=== PATIENT | female | born 1955 | race Caucasian/White ===

== ENCOUNTER → 2016-11-20 | Outpatient (CLI) | payer BC ==
[~2016-11-20] MED LIST: BENI40TA31 PO; BENI40TA5 PO; GABA100C4 PO; HYDR-3516 PO; HYDR-3583 PO; LORT5TAB PO; MELO-1 PO; MOBI15TA PO; OMEP20TA PO
--- NOTE | 2016-11-21 16:55 | EKG ---
Date Performed: 11/20/2016 Time Performed: 12:31:08 PTAGE: 61 years EKG: Sinus rhythm NORMAL ECG PREVIOUS TRACING : 03/04/2013 11.47 DOCTOR: Maryam Cho Interpretating Date/Time 11/21/2016 16:54:42
== END ==
LOC: HCAV 12:22
PROVIDERS: ATTEND Orthopaedic Surgery
DX: Z01.818 Encounter for other preprocedural examination (principal)
CPT/HCPCS: 93005

== ENCOUNTER → 2016-11-21 | Day surgery (SDC) | payer BC ==
[~2016-11-21] VITALS: Ht 175.3 cm; Wt 79.5 kg
[~2016-11-21] MED LIST changes: +*morphine SULFATE 8 MG/ML PERIprocedure ONLY ONE; +ACETAMINOPHEN/HYDROcodone 325 MG/5 MG TAB PO PRN; -BENI40TA31 PO; +BUPIVACAINE/EPINEPHRINE 0.5% PF 10 ML VIAL ONE; +CHLORHEXIDINE GLUCONATE 2 % 1 PACK (2 CLOTHS) TOPICAL PRN; +DEXAMETHASONE SOD PHOS 4 MG/ML VIAL IV ONE; +DO NOT ADM ANY ANTICOAGULANT DRUGS PRN; +FAMOTIDINE 20 MG/2 ML VIAL ONE; +GLYCOPYRROLATE 0.2 MG/ML VIAL IV PUSH ONE; +INSULIN HUMAN REGULAR 1,000 UNITS/10 ML VIAL SQ PRN; +KETOROLAC TROMETHAMINE 30 MG/ML (IVP) VIAL IV PUSH ONE; +LACTATED RINGER'S 1000 ML INJ 1,000 ML IV ONE; +LACTATED RINGER'S 1000 ML INJ 1,000 ML IV SCH; +LACTATED RINGER'S 1000 ML IV PRN; +LIDOCAINE HCL 1% PF 5 ML AMPULE OTHER ONE; -LORT5TAB PO; +METOPROLOL TARTRATE 25 MG TAB PO PRN; +MIDAZOLAM HCL 2 MG/2 ML VIAL IV ONE; +MIDAZOLAM HCL 2 MG/2 ML VIAL ONE; -MOBI15TA PO; +MORPHINE SULFATE 4 MG/ML INJ IV PUSH PRN; +ONDANSETRON HCL 4 MG/2 ML VIAL IV PRN; +ONDANSETRON HCL 4 MG/2 ML VIAL IV PUSH ONE; +POVIDONE IODINE 5% (ANTISEPSIS KIT) 4 APPLICATIONS EACH NARE PRN; +POVIDONE IODINE 7.5% SCRUB 118 ML BOTTLE TOPICAL SCH; +PROPOFOL 200 MG/20 ML AMP IV ONE; +ROCURONIUM INJ 50 MG/5 ML SYRINGE IV PUSH ONE; +SODIUM CHLORID 0.9% 500 ML IV PRN; +SODIUM CHLORIDE 0.9% FLUSH 5 ML FLUSH IVF PRN; +SODIUM CHLORIDE 0.9% FLUSH 5 ML FLUSH IVF SCH; +SUGAMMADEX SODIUM 200 MG/2 ML VIAL IV PUSH ONE; +ceFAZolin 2 GM PREMIX 50 ML IV SCH
--- NOTE | 2016-11-21 09:31 | MP ---
cc: CARLOS EDUARDO ALDRICH DATE OF SURGERY: 11/21/2016 PREOPERATIVE DIAGNOSIS Stress fracture right fifth metatarsal. POSTOPERATIVE DIAGNOSIS Stress fracture right fifth metatarasal. OPERATIVE PROCEDURE Internal fixation fracture right fifth metatarsal with a screw (we used a 4.5 malleolar screw, 65 mm long). SURGEON Dr. Carlos Eduardo Aldrich. ANESTHESIA General TECHNIQUE After induction of general anesthesia the patient was turned anterior right oblique position of supporting beanbag, well leg was properly padded. Axillary roll was placed. The patient was securely positioned. The right leg and foot thoroughly prepped with alcohol and ChloraPrep and draped in routine fashion. C-arm fluoroscopic imaging was done through the procedure. An incision 2 cm long was made centered on the tuberosity the fifth metatarsal a deep dissection carried out with a hemostat and a guidewire was then introduced, as far dorsal and medial as we could, the head of the medullary canal to the fifth metatarsal. He was in satisfactory position. I tried to improve it with additional guide wire but the additional guidewire was removed and indeed this current guidewire looks good. The 3.2 mm cannulated reamer was then placed over it and reamed to just past the fracture site. Measurements a carried out and a 65 mm malleolar screw was introduced and tightened following a fluoroscopically to make sure it is in proper position. This of course was done once a pin was removed. Final fluoroscopic images saved. Hemostasis and with cautery. 0.5% Marcaine with epinephrine injected around the incision. Closure was carried out with interrupted 3-0 nylon vertical mattress sutures. Dressing applied with Xeroform, 4x4s, ABD on the heel and a posterior fiberglass splint secured with Ernesto and Tyrese bandage. The patient transferred recovery room in satisfactory condition. The patient tolerated the procedure well. COMPLICATIONS None. POSTOPERATIVE CONDITION Satisfactory PROGNOSIS Good. MD JOANNA Jerry/lois /8:58 AM /9:23 AM
[2016-11-21 09:35] VITALS: TEMP 97.4
[2016-11-21 10:05] VITALS: BP 115/64; PULSE 70; RESP 20; O2SAT 100
--- NOTE | 2016-11-21 13:10 | RADRPT ---
EXAM DATE/TIME: 11/21/2016 07:56 [facility] COMPARISON: No previous studies available for comparison. INDICATIONS : ORIF of the right foot. MEDICAL HISTORY : Hypertension. Arthritis. Smoker. SURGICAL HISTORY : Hysterectomy. ENCOUNTER: Initial ACUITY: 1 day PAIN SCORE: Non-responsive. LOCATION: Right foot. FINDINGS: Matrix views reveal placement of 2 long orthopedic pins transfixing the base to mid fifth metatarsal. There is no evidence of dislocation. CONCLUSION: Orthopedic pins transfixing the fifth metatarsal Joce Kiran MD on November 21, 2016 at 13:07 Board Certified Radiologist. This report was verified electronically.
== END | disposition home or self-care (01) ==
LOC: HSDC 05:33
PROVIDERS: ATTEND Orthopaedic Surgery
DX: M84.374A Stress fracture, right foot, initial encounter for fracture (principal); I10 Essential (primary) hypertension; M15.9 Polyosteoarthritis, unspecified
CPT/HCPCS: 01480; 28485; 73620; 76000; C1713; J0690; J1100; J1885; J2250; J2270; J2405; J3010; J7120

== ENCOUNTER 2017-06-05 11:44 | Inpatient (IN) | payer BC ==
[~2017-06-05] VITALS: Ht 175.3 cm; Wt 79.6 kg
[~2017-06-05 11:44] MED LIST changes: -*morphine SULFATE 8 MG/ML PERIprocedure ONLY ONE; -ACETAMINOPHEN/HYDROcodone 325 MG/5 MG TAB PO PRN; -BENI40TA5 PO; -BUPIVACAINE/EPINEPHRINE 0.5% PF 10 ML VIAL ONE; +CALC1TAB87 PO; -CHLORHEXIDINE GLUCONATE 2 % 1 PACK (2 CLOTHS) TOPICAL PRN; +DAILTAB38 PO; -DEXAMETHASONE SOD PHOS 4 MG/ML VIAL IV ONE; -DO NOT ADM ANY ANTICOAGULANT DRUGS PRN; -FAMOTIDINE 20 MG/2 ML VIAL ONE; -GABA100C4 PO; -GLYCOPYRROLATE 0.2 MG/ML VIAL IV PUSH ONE; -HYDR-3516 PO; -HYDR-3583 PO; -INSULIN HUMAN REGULAR 1,000 UNITS/10 ML VIAL SQ PRN; -KETOROLAC TROMETHAMINE 30 MG/ML (IVP) VIAL IV PUSH ONE; -LACTATED RINGER'S 1000 ML INJ 1,000 ML IV ONE; -LACTATED RINGER'S 1000 ML INJ 1,000 ML IV SCH; -LACTATED RINGER'S 1000 ML IV PRN; -LIDOCAINE HCL 1% PF 5 ML AMPULE OTHER ONE; -MELO-1 PO; +MELO15TA20 PO; -METOPROLOL TARTRATE 25 MG TAB PO PRN; -MIDAZOLAM HCL 2 MG/2 ML VIAL IV ONE; -MIDAZOLAM HCL 2 MG/2 ML VIAL ONE; -MORPHINE SULFATE 4 MG/ML INJ IV PUSH PRN; +OMEGCAP PO; -OMEP20TA PO; +OMEP20TA93 PO; -ONDANSETRON HCL 4 MG/2 ML VIAL IV PRN; -ONDANSETRON HCL 4 MG/2 ML VIAL IV PUSH ONE; -POVIDONE IODINE 5% (ANTISEPSIS KIT) 4 APPLICATIONS EACH NARE PRN; -POVIDONE IODINE 7.5% SCRUB 118 ML BOTTLE TOPICAL SCH; -PROPOFOL 200 MG/20 ML AMP IV ONE; -ROCURONIUM INJ 50 MG/5 ML SYRINGE IV PUSH ONE; -SODIUM CHLORID 0.9% 500 ML IV PRN; -SODIUM CHLORIDE 0.9% FLUSH 5 ML FLUSH IVF PRN; -SODIUM CHLORIDE 0.9% FLUSH 5 ML FLUSH IVF SCH; -SUGAMMADEX SODIUM 200 MG/2 ML VIAL IV PUSH ONE; -ceFAZolin 2 GM PREMIX 50 ML IV SCH
[2017-06-05] MEDS ORDERED: SODIUM CHLOR 0.9% 1000 ML INJ 1,000 ML IV ONE (12:00)
[2017-06-05] MEDS ORDERED: PHENYLEPH/NS 1000 MCG/10 ML SYR IV ONE (12:00)
[2017-06-05] MEDS ORDERED: DEXAMETHASONE SOD PHOS 4 MG/ML VIAL IV ONE (12:00)
[2017-06-05] MEDS ORDERED: ONDANSETRON HCL 4 MG/2 ML VIAL IV ONE ×2 (12:00→12:45)
[2017-06-05] MEDS ORDERED: ROCURONIUM INJ 50 MG/5 ML SYRINGE IV PUSH ONE (12:00)
[2017-06-05] MEDS ORDERED: LIDOCAINE HCL 1% PF 5 ML SYRINGE OTHER ONE (12:00)
[2017-06-05] MEDS ORDERED: KETOROLAC TROMETHAMINE 30 MG/ML (IVP) VIAL IV PUSH ONE (12:00)
[2017-06-05] MEDS ORDERED: ePHEDrine/NS 25 MG/5 ML SYRINGE IV ONE (12:00)
[2017-06-05] MEDS ORDERED: DEXT 5%-NACL 0.9% 1000 ML INJ 1,000 ML IV SCH (12:00)
[2017-06-05] MEDS ORDERED: PROPOFOL 200 MG/20 ML AMP IV ONE (12:00)
[2017-06-05] MEDS ORDERED: LACTATED RINGER'S 1000 ML IV PRN (12:15)
[2017-06-05] MEDS ORDERED: CEFAZOLIN INJ 2,000 MG in SODIUM CHLORIDE 0.9% INJ 100 ML IV SCH (12:15)
[2017-06-05] MEDS ORDERED: CHLORHEXIDINE GLUCONATE 2 % 1 PACK (2 CLOTHS) TOPICAL PRN (12:15)
[2017-06-05] MEDS ORDERED: POVIDONE IODINE 5% (ANTISEPSIS KIT) 4 APPLICATIONS EACH NARE PRN (12:15)
[2017-06-05] MEDS ORDERED: SODIUM CHLORID 0.9% 500 ML IV PRN (12:15)
[2017-06-05] MEDS ORDERED: METOPROLOL TARTRATE 25 MG TAB PO PRN (12:15)
[2017-06-05] MEDS ORDERED: METRONIDAZOLE 500 MG/100 ML ISONTONIC SOLN IV SCH (12:15)
[2017-06-05] MEDS ORDERED: FAMOTIDINE 20 MG/2 ML VIAL ONE (12:44)
[2017-06-05] MEDS ORDERED: ONDANSETRON HCL 4 MG/2 ML VIAL ONE (12:44)
[2017-06-05] MEDS ORDERED: SUGAMMADEX SODIUM 200 MG/2 ML VIAL IV PUSH ONE ×2 (12:47→13:20)
[2017-06-05] MEDS ORDERED: ACETAMINOPHEN 1000 MG/100 ML 100 ML IV ONE (12:48)
[2017-06-05] MEDS ORDERED: FAMOTIDINE 20 MG/2 ML VIAL IV ONE (12:50)
[2017-06-05] MEDS ORDERED: ceFAZolin INJ 1,000 MG VIAL ONE (13:09)
[2017-06-05] MEDS ORDERED: MIDAZOLAM HCL 2 MG/2 ML VIAL ONE (13:26)
[2017-06-05] MEDS: metroNIDAZOLE 500 MG INJ 100 ML IV SCH (13:55)
--- NOTE | 2017-06-05 14:13 | PD.OP ---
Operative Report Date of Surgery: Jun 05, 2017 Preoperative Diagnosis: Colon stricture Postoperative Diagnosis: Same Procedure: Cystoscopy with bilateral ureteral catheter insertion Anesthesia: [facility] Surgeon: Dung Mabry Mattress Specialist(s): None Resident Surgeon: None Operation and Findings: 62-year-old female with findings of a colonic stricture. Request for made for bilateral ureteral catheter insertion. Patient is brought to the operating room and placed in the dorsal lithotomy position. She is prepped and draped in usual sterile fashion preprocedure antibiotics were administered. General endotracheal tube anesthesia was administered. 22 Czech scope was inserted in the bladder busch cystoscopy did not reveal any abnormalities. Left ureteral orifices identified and a 5F open ended catheter was inserted in the left ureteral orifice without difficulty. This was then repeated on the right side without difficulty. The patient tolerated the procedure well. Dung Mabry DO Jun 05, 2017 14:13
[2017-06-05] MEDS ORDERED: ACETAMINOPHEN 325 MG TAB PO PRN (17:15)
[2017-06-05] MEDS ORDERED: ACETAMINOPHEN/HYDROcodone 325 MG/5 MG TAB PO PRN (17:15)
[2017-06-05] MEDS ORDERED: *MEPERIDINE 25 MG INJ VIAL PERIprocedural Use ONLY ONE (17:36)
[2017-06-05] MEDS ORDERED: DO NOT ADM ANY ANTICOAGULANT DRUGS PRN (17:36)
[2017-06-05] MEDS ORDERED: *morphine SULFATE 4 MG/ML PERIprocedure ONLY ONE ×3 (17:39→18:04)
[2017-06-05] MEDS ORDERED: *HYDROmorphone PF 1 MG VIAL PERIprocedural Use ONLY ONE (17:47)
[2017-06-05] MEDS ORDERED: HYDROmorphone HCL PF 2 MG/ML VIAL IV ONE (17:48)
[2017-06-05] MEDS ORDERED: ENALAPRILAT 2.5 MG/2 ML VIAL IV PUSH PRN (18:00)
[2017-06-05] MEDS ORDERED: Post-op Orders (for Pharmacy) XX ONE (18:00)
[2017-06-05] MEDS ORDERED: ENALAPRILAT 1.25 MG/ML VIAL IV PUSH PRN (18:00)
[2017-06-05] MEDS: KETOROLAC TROMETHAMINE 30 MG/ML (IVP) VIAL IVP SCH (18:00)
[2017-06-05] MEDS: D5-NS + KCL 20 MEQ INJ 1,000 ML IV SCH (18:00)
[2017-06-05] MEDS ORDERED: ONDANSETRON HCL 4 MG/2 ML VIAL IV PUSH PRN (18:00)
[2017-06-05] MEDS ORDERED: ceFAZolin INJ 1,000 MG VIAL IV ONE (18:14)
[2017-06-05] MEDS ORDERED: POTASSIUM CHLOR 40 MEQ PREMIX 100 ML IV PRN (18:15)
[2017-06-05] MEDS ORDERED: NALOXONE HCL 0.4 MG/ML AMP IV PUSH PRN (18:15)
[2017-06-05] MEDS ORDERED: POTASSIUM CHLOR 20 MEQ PREMIX 100 ML IV PRN (18:15)
[2017-06-05] MEDS ORDERED: BENZOCAINE 6 MG/MENTHOL 10 MG LOZENGE BUCCAL PRN (18:15)
[2017-06-05] MEDS ORDERED: diphenhydrAMINE HCL 50 MG/ML VIAL IV PUSH PRN (18:15)
[2017-06-05] MEDS ORDERED: LORazepam 2 MG/ML VIAL IV ONE (18:20)
[2017-06-05] MEDS ORDERED: LORazepam 2 MG/ML VIAL ONE (18:20)
--- NOTE | 2017-06-05 18:35 | MP ---
cc: Ayanna Roth MD DATE OF OPERATION: 06/05/2017 DATE OF PROCEDURE: 06/05/2017 PREOPERATIVE DIAGNOSIS: Sigmoid colon stricture. POSTOPERATIVE DIAGNOSES: 1. Sigmoid colon stricture. 2. Incisional hernia. PROCEDURE PERFORMED: 1. Robotic low anterior resection. 2. Incisional hernia repair. SURGEON: Ayanna Roth MD INTELLECTUAL PROPERTY LEGAL ASSISTANT: David. ANESTHESIA: General per ET tube. ESTIMATED BLOOD LOSS: 100 mL. INDICATION FOR PROCEDURE: The patient is a 62-year-old female who has x-ray evidence of a colonic stricture, which is quite symptomatic. OPERATIVE FINDINGS: The patient had a tight stricture in her mid sigmoid, which was folded over and attached to itself. It was quite firm, but also had some areas of abscess around it, making it very inconclusive as to whether or not it was malignant or not. The uterus and ovaries were absent. The liver had no visible abnormalities. The gallbladder was enlarged, but was noninflamed and no evidence of stones. OPERATIVE COURSE: The patient was brought to the operating room and placed in the supine position. After induction of general anesthesia, the patient was placed in Tolu stirrups and all bony prominences were padded. Dr. Sanchez came in and performed cystoscopy with placement of ureteral catheters; please see his operative note for details. The site was then chosen for the camera being located just to the right and above the umbilicus. A 10/12 trocar was placed at this location under direct vision using the laparoscope. CO2 insufflation was then undertaken and a brief abdominal survey was performed with nothing noted that would preclude the robotic approach. She was noted to have adhesions of the omentum to the anterior abdominal wall, very small. The remainder of the ports were placed as follows: The number 1 port was placed just inside the right anterior superior iliac spine. The number 5 assist port was placed just under the costal margin, equal distance between the number 1 and number the camera port. The number 3 port was placed in the umbilical line in the left anterior axillary line and the 2 port was placed in the left midclavicular line, 3 fingerbreadths above the umbilicus. The patient ____ with head down and slightly to the right. The omentum was brought up and over the transverse colon, the area in question was at that point clearly visualized. The adhesion of omentum to the anterior abdominal wall was then also removed and the small bowel was brought up and out of the pelvis. The robot was then docked. The rectosigmoid was directed down to the left. The peritoneum on the right was scored and a window was made posterior to the vessel. Dissection continued in this plane until the left ureter was clearly identified and swept away from the specimen. At this point, after evaluation, I was still unclear whether or not this actually was a tumor and so because of this, I did elect to proceed with clipping of the vessels at their base. The inferior mesenteric vessels were dissected free just after their takeoff from the aorta. These were doubly clamped proximally, singly clamped distally, all with Hem-o-anthony clamps and divided. Dissection continued posteriorly, freeing the caudal portion of the descending colon mesentery from the posterior peritoneum. Dissection then continued posteriorly down into the posterior rectal space. Dissection then continued up and around the right and left side. The lateral peritoneal attachments of the sigmoid colon and the descending colon were then dissected free, continuing until we met our previous dissection. Eventually, we were able to dissect off the phlegmonous folded over area of sigmoid colon from the left lateral pelvic sidewall and dissection continued down on the left and right side down to the cul-de-sac, which was opened. A sponge stick was then placed on the rectum and a site was chosen for division 3-4 cm distal to the area of abnormal bowel. The mesentery at this level was divided using the Harmonic scalpel and a blue load of the [place] [facility] stapler was placed across the bowel at this level. This was fired and removed. A sponge stick was then placed in the anus and advanced to the rectal stump without difficulty and a 29 EEA stapler was also advanced. A small amount of fibrofatty tissue was removed and the stapler was then removed and placed to the side. The descending colon was then retracted off the takedown of the splenic flexure. There was noted to be quite a bit of diverticula in the descending colon and there was one area where I could not really visualize, but I was worried that I had had cautery a injury just over the surface of the diverticulum. With this, I felt that it would be prudent to take down the splenic flexure to allow us more room to find a better area for anastomosis and to evaluate that area of the possible injury. Dissection continued up the lateral sidewall and posteriorly freeing the descending colon mesentery from Gerota fascia. This continued up and around the splenic flexure, into but not around and through the lesser sac. This allowed quite a bit of mobility and the area in question came down nicely for us to visualize through the incision and also gave us more length for possible areas for anastomosis. All dissection beds were examined and there was no sign of any significant bleeding. The robot was then docked. The previous lower midline incision was then incised in its midpoint for a distance of about 10 cm. Immediately, she was noted to have a little hernia with a small hernia sac. The remaining fascia and hernia sac were then opened. The wound protector was placed. The proximal stapled end of the bowel was grasped and pulled up and out through the incision. The bowel was brought down and measured and a site was chosen for proximal division of the bowel where there was the clearest area without diverticula for reanastomosis. The mesentery at this level was serially divided and ligated using 0 Vicryl ties and a pursestring stapling device was placed across the bowel at this level. The previous area where we had the questionable serosal burn was right over a diverticula, so I elected to tuck the diverticulum in and closed the bowel over that in an interrupted [id number] fashion using 3-0 Vicryl. The anvil from the 29 EEA stapler was brought onto the field and placed into the cut end of the bowel and the previously placed pursestring suture was then secured. There was 1 small diverticula that was still little in the way of the staple line, so I did bring that in with a suture of 3-0 Vicryl. The anvil was then reduced back into the peritoneal cavity. The ILS stapler was then advanced through the anus and up to the rectal stump without difficulty. The spike was advanced just anterior to the staple line. The anvil was made with the spike being careful that the bowel was not twisted. The stapler was closed, held for 30 seconds, fired and removed, thus creating an enteroenterotomy. The resulting enterotomy appeared pink and healthy circumferentially and lay in a nice orientation without tension. Both anastomotic rings were noted to be complete. Small amount of warm normal saline was placed into the pelvis and the proximal bowel was occluded with digital pressure. Air was insufflated into the rectum until gentle tension was noted on the anastomosis with no sign of any leakage noted. The air was desufflated to the extent possible and the saline was suctioned out of the pelvis and the anastomosis lay in a very nice orientation. At this point, all dissection beds were examined with no sign of any significant bleeding noted. The omentum was brought down to lay over the anterior surface of the bowel. The fascial edges were cleaned circumferentially and the hernia sac was removed and sent for pathology. The fascia was then closed in a 2-layer closure using a running stitch of 0 #1 PDS suture. The wound was copiously irrigated with warm normal saline and the skin was closed in a running subcuticular fashion using 3-0 Vicryl. An Op-Site was placed over the incision and CO2 insufflation was resumed. The laparoscope was reintroduced into the peritoneal cavity and again no sign of any significant bleeding was noted. The fascia at the 10/12 trocar sites in the right lower quadrant and the umbilical port site were then closed using the crossbow and 0 Vicryl suture. These were placed ____ until the area was desufflated to the extent possible. The air was desufflated to the extent possible and the fascial sutures were secured. The wounds were copiously irrigated with warm normal saline and the trocar sites were closed in interrupted subcuticular fashion using 3-0 Vicryl. At this time point, the specimen was opened and though there was one small area of ulceration that could have represented a tumor, but it was still nondefinitive whether this was a malignancy or severe inflammation and so the specimen was sent for pathology. The right ureteral stent was then removed. All sponge, needle and instrument counts were correct and the patient was returned to the Postanesthesia Care Unit in stable condition. MD SINDI Del Cid/LAYLA , 05:22 PM , 06:34 PM
[2017-06-05] MEDS: MORPHINE SULFATE 30 MG/30 ML PCA IV SCH (18:56)
[2017-06-05 20:00] VITALS: BP 159/82; PULSE 70; RESP 20; TEMP 98.4; O2SAT 100
[2017-06-05] MEDS: PCA - TOTAL MG MORPHINE DELIVERED PER SHIFT SCH (22:00)
[2017-06-05 22:30] LABS: AUTOMATED NEUTROPHIL # 12.7 TH/MM3 (1.8-7.7); BASOPHIL % 0.2 % (0.0-2.0); HEMOGLOBIN 12.8 GM/DL (11.6-15.3); LYMPH % 4.8 % (9.0-44.0); LYMPHOCYTE # 0.7 TH/MM3 (1.0-4.8); MEAN CELL VOLUME 87.8 FL (80.0-100.0); MEAN CORPUSCULAR HEMOGLOBIN 29.6 PG (27.0-34.0); MEAN CORPUSCULAR HGB CONC 33.7 % (32.0-36.0); MEAN PLATELET VOLUME 8.8 FL (7.0-11.0); MONO % 7.8 % (0.0-8.0); MONOCYTE # 1.1 TH/MM3 (0-0.9); NEUT % 87.2 % (16.0-70.0); PLATELET COUNT 230 TH/MM3 (150-450); RED BLOOD COUNT 4.33 MIL/MM3 (4.00-5.30); RED CELL DISTRIBUTION WIDTH 13.7 % (11.6-17.2); WHITE BLOOD COUNT 14.6 TH/MM3 (4.0-11.0)
[2017-06-05 22:45] LABS: CREATININE 0.99 MG/DL (0.50-1.00)
[2017-06-06] VITALS (12 sets, daily range): BP systolic 121–158; BP diastolic 55–69; PULSE 55–72; RESP 16–20; TEMP 97.9–98.7; O2SAT 96–100
[2017-06-06] MEDS: KETOROLAC TROMETHAMINE 30 MG/ML (IVP) VIAL IVP SCH ×3 (00:19→17:25)
[2017-06-06] MEDS: D5-NS + KCL 20 MEQ INJ 1,000 ML IV SCH (00:25)
[2017-06-06 04:35] LABS: BICARBONATE 26.2 MEQ/L (21.0-32.0); CALCIUM 8.1 MG/DL (8.5-10.1); CREATININE 1.26 MG/DL (0.50-1.00)
[2017-06-06 06:09] LABS: AUTOMATED NEUTROPHIL # 10.5 TH/MM3 (1.8-7.7); BASOPHIL % 0.2 % (0.0-2.0); HEMATOCRIT 36.9 % (35.0-46.0); HEMOGLOBIN 12.5 GM/DL (11.6-15.3); LYMPH % 10.2 % (9.0-44.0); LYMPHOCYTE # 1.3 TH/MM3 (1.0-4.8); MEAN CELL VOLUME 87.5 FL (80.0-100.0); MEAN CORPUSCULAR HEMOGLOBIN 29.7 PG (27.0-34.0); MEAN CORPUSCULAR HGB CONC 33.9 % (32.0-36.0); MEAN PLATELET VOLUME 9.2 FL (7.0-11.0); MONOCYTE # 1.3 TH/MM3 (0-0.9); NEUT % 79.6 % (16.0-70.0); PLATELET COUNT 235 TH/MM3 (150-450); RED BLOOD COUNT 4.21 MIL/MM3 (4.00-5.30); RED CELL DISTRIBUTION WIDTH 13.9 % (11.6-17.2); WHITE BLOOD COUNT 13.2 TH/MM3 (4.0-11.0)
[2017-06-06] MEDS: MORPHINE SULFATE 30 MG/30 ML PCA IV SCH (07:12)
[2017-06-06] MEDS: PANTOPRAZOLE SODIUM 40 MG VIAL IVP SCH (09:03)
--- NOTE | 2017-06-06 11:07 | HHI.PR ---
Subjective Remarks C/R Surg POD #1 afebrile, VSS UO good to PO Objective - Vital Signs Date Time Temp Pulse Resp B/P (MAP) Pulse Ox O2 Delivery O2 Flow Rate FiO2 06/06/17 10:00 57 06/06/17 07:55 99 21 06/06/17 07:15 97.9 20 141/63 (89) 06/05/17 18:55 Nasal Cannula 3 Result Diagram: 06/06/17 0348 06/06/17 0348 Objective Remarks PE alert Abd - soft, flat, wound dry A/P Assessment and Plan Imp: stable post-op OOB decr IVF tx to floor Steven Wolfe MD Jun 06, 2017 11:07
[2017-06-06] MEDS: metroNIDAZOLE 500 MG INJ 100 ML IV SCH (13:13)
[2017-06-06] MEDS: PCA - TOTAL MG MORPHINE DELIVERED PER SHIFT SCH ×2 (14:00→22:00)
[2017-06-06] MEDS: HEPARIN SODIUM - SQ 10,000 UNITS/ML VIAL SQ SCH (17:25)
[2017-06-07] VITALS (7 sets, daily range): BP systolic 124–147; BP diastolic 60–73; PULSE 56–69; RESP 17–20; TEMP 97.9–99.1; O2SAT 98–100
[2017-06-07] MEDS: D5-NS + KCL 20 MEQ INJ 1,000 ML IV SCH ×3 (02:30→23:03)
[2017-06-07 04:20] LABS: AUTOMATED NEUTROPHIL # 4.7 TH/MM3 (1.8-7.7); BASOPHIL # 0.1 TH/MM3 (0-0.2); BASOPHIL % 1.2 % (0.0-2.0); EOSINOPHIL # 0.4 TH/MM3 (0-0.4); EOSINOPHIL % 5.7 % (0.0-4.0); HEMATOCRIT 32.6 % (35.0-46.0); LYMPH % 21.2 % (9.0-44.0); LYMPHOCYTE # 1.6 TH/MM3 (1.0-4.8); MEAN CELL VOLUME 87.6 FL (80.0-100.0); MEAN CORPUSCULAR HEMOGLOBIN 29.4 PG (27.0-34.0); MEAN CORPUSCULAR HGB CONC 33.6 % (32.0-36.0); MEAN PLATELET VOLUME 8.6 FL (7.0-11.0); MONO % 10.3 % (0.0-8.0); MONOCYTE # 0.8 TH/MM3 (0-0.9); NEUT % 61.6 % (16.0-70.0); PLATELET COUNT 189 TH/MM3 (150-450); RED BLOOD COUNT 3.73 MIL/MM3 (4.00-5.30); RED CELL DISTRIBUTION WIDTH 13.9 % (11.6-17.2); WHITE BLOOD COUNT 7.6 TH/MM3 (4.0-11.0)
[2017-06-07 04:51] LABS: BICARBONATE 25.6 MEQ/L (21.0-32.0); CREATININE 1.32 MG/DL (0.50-1.00)
[2017-06-07] MEDS: HEPARIN SODIUM - SQ 10,000 UNITS/ML VIAL SQ SCH ×2 (05:00→16:46)
[2017-06-07] MEDS: PCA - TOTAL MG MORPHINE DELIVERED PER SHIFT SCH (05:23)
[2017-06-07] MEDS: KETOROLAC TROMETHAMINE 30 MG/ML (IVP) VIAL IVP SCH ×5 (05:23→23:10)
[2017-06-07] MEDS: ACETAMINOPHEN/HYDROcodone 325 MG/5 MG TAB PO PRN ×2 (09:51→16:47)
[2017-06-07] MEDS: PANTOPRAZOLE SODIUM 40 MG VIAL IVP SCH (09:51)
--- NOTE | 2017-06-07 12:04 | HHI.PR ---
Subjective Remarks C/R Surg POD #2 afebrile, VSS UO good to PO Objective - Vital Signs Date Time Temp Pulse Resp B/P (MAP) Pulse Ox O2 Delivery O2 Flow Rate FiO2 06/07/17 11:00 97.9 58 18 147/73 (97) 100 06/06/17 07:55 21 06/05/17 18:55 Nasal Cannula 3 Result Diagram: 06/07/17 0405 06/07/17 0405 Objective Remarks PE alert Abd - soft, flat, wound dry, +flatus A/P Assessment and Plan Imp: OOB decr IVF tx to floor dc plans Steven Wolfe MD Jun 07, 2017 12:03
[2017-06-08 00:02] VITALS: BP 132/71; PULSE 59; RESP 16; TEMP 99.1; O2SAT 98
[2017-06-08 03:25] VITALS: BP 154/66; PULSE 69; RESP 17; TEMP 98.3; O2SAT 100
[2017-06-08 04:08] LABS: BASOPHIL # 0.1 TH/MM3 (0-0.2); EOSINOPHIL # 0.6 TH/MM3 (0-0.4); EOSINOPHIL % 7.7 % (0.0-4.0); HEMATOCRIT 32.1 % (35.0-46.0); HEMOGLOBIN 10.7 GM/DL (11.6-15.3); LYMPH % 16.2 % (9.0-44.0); LYMPHOCYTE # 1.3 TH/MM3 (1.0-4.8); MEAN CELL VOLUME 87.2 FL (80.0-100.0); MEAN CORPUSCULAR HEMOGLOBIN 29.1 PG (27.0-34.0); MEAN CORPUSCULAR HGB CONC 33.4 % (32.0-36.0); MEAN PLATELET VOLUME 8.7 FL (7.0-11.0); MONO % 10.7 % (0.0-8.0); MONOCYTE # 0.8 TH/MM3 (0-0.9); NEUT % 64.4 % (16.0-70.0); PLATELET COUNT 196 TH/MM3 (150-450); RED BLOOD COUNT 3.68 MIL/MM3 (4.00-5.30); RED CELL DISTRIBUTION WIDTH 14.1 % (11.6-17.2); WHITE BLOOD COUNT 7.8 TH/MM3 (4.0-11.0)
[2017-06-08 04:24] LABS: BICARBONATE 28.5 MEQ/L (21.0-32.0); CALCIUM 8.4 MG/DL (8.5-10.1); CREATININE 0.86 MG/DL (0.50-1.00)
[2017-06-08] MEDS: KETOROLAC TROMETHAMINE 30 MG/ML (IVP) VIAL IVP SCH (05:20)
[2017-06-08] MEDS: HEPARIN SODIUM - SQ 10,000 UNITS/ML VIAL SQ SCH (05:20)
[2017-06-08 07:40] VITALS: BP 152/76; PULSE 61; RESP 16; TEMP 98.9; O2SAT 100
[2017-06-08] MEDS: ACETAMINOPHEN/HYDROcodone 325 MG/5 MG TAB PO PRN (08:34)
[2017-06-08 10:05] VITALS: O2SAT 100
[2017-06-08 12:30] VITALS: BP 150/70; PULSE 62; RESP 16; TEMP 98.7; O2SAT 100
[2017-06-08 15:46] VITALS: BP 148/66; PULSE 60; RESP 16; TEMP 98.8; O2SAT 99
--- NOTE | 2017-06-08 15:56 | HHI.PR ---
Subjective Remarks POD#3 s/p robotic sigmoid resection comfortable, wants to go home Objective Vital Signs Date Time Temp Pulse Resp B/P (MAP) Pulse Ox O2 Delivery O2 Flow Rate FiO2 06/08/17 15:46 98.8 60 16 148/66 (93) 99 06/08/17 12:30 98.7 62 16 150/70 (96) 100 06/08/17 10:05 100 21 06/08/17 07:40 98.9 61 16 152/76 (101) 100 06/08/17 03:25 98.3 69 17 154/66 (95) 100 06/08/17 00:02 99.1 59 16 132/71 (91) 98 06/07/17 21:28 98 21 06/07/17 20:15 99.1 64 17 144/66 (92) 99 I/O 06/07/17 06/07/17 06/07/17 06/08/17 06/08/17 06/08/17 07:00 15:00 23:00 07:00 15:00 23:00 Intake Total 570 ml 840 ml 480 ml Output Total 900 ml 800 ml 1250 ml Balance -330 ml 40 ml -770 ml Intake Oral 570 ml 840 ml 480 ml Output Urine Total 900 ml 800 ml 1250 ml # Bowel Movements 0 0 Result Diagram: 06/08/17 0345 06/08/17 0345 Objective Remarks Abdomen soft, nondistended, tender Wounds clean Assessment and Plan Assessment and Plan Doing well Home today followup 3 weeks Ayanna Roth MD Jun 08, 2017 15:56
[2017-06-08] MEDS ORDERED: HYDR-3516 PO (16:00)
--- NOTE | 2017-06-08 16:16 | MD ---
cc: Ayanna Roth MD DATE OF DISCHARGE: 06/08/2017 ADMISSION DIAGNOSIS: Sigmoid colon stricture. DISCHARGE DIAGNOSIS: Sigmoid colon stricture. PROCEDURES PERFORMED: 1. Robotic-assisted low anterior resection. 2. Incisional hernia repair. HOSPITAL COURSE: The patient is a 62-year-old female who has a colonic stricture which was quite symptomatic. She was admitted to the hospital on 06/05/2017 after an outpatient bowel prep. She was taken to the operating room where she underwent the above-named procedures. Postoperatively, she did well with rapid return of bowel and bladder function. She was discharged to home on postoperative day 3 with instructions to followup with myself in the office. Final pathology was not available at the time of discharge. Ayanna Roth MD KW/SB , 03:58 PM , 04:15 PM
== END 2017-06-08 16:50 | disposition home or self-care (01) | DRG 331 ==
LOC: HSDI 11:44 → HCPC 18:30
PROVIDERS: ADMIT Colon & Rectal Surgery; ATTEND Colon & Rectal Surgery
PROC: 0WQF0ZZ Repair Abdominal Wall, Open Approach (ICD-10-PCS; 2017-06-05)
PROC: 8E0W3CZ Robotic Assisted Procedure of Trunk Region, Percutaneous Approach (ICD-10-PCS; 2017-06-05)
PROC: 0T788DZ Dilation of Bilateral Ureters with Intraluminal Device, Via Natural or Artificial Opening Endoscopic (ICD-10-PCS; 2017-06-05)
PROC: 0DTN0ZZ Resection of Sigmoid Colon, Open Approach (ICD-10-PCS; principal; 2017-06-05 13:21)
PROC: 0DBP0ZZ Excision of Rectum, Open Approach (ICD-10-PCS; 2017-06-05 13:21)
DX: K56.699 Other intestinal obstruction unspecified as to partial versus complete obstruction (principal); I10 Essential (primary) hypertension; K43.2 Incisional hernia without obstruction or gangrene; G47.30 Sleep apnea, unspecified; F17.210 Nicotine dependence, cigarettes, uncomplicated; K21.9 Gastro-esophageal reflux disease without esophagitis; Z85.44 Personal history of malignant neoplasm of other female genital organs
CPT/HCPCS: 80048; 85025; 86850; 86900; 86901; 88302; 88309; 94150; C9113; J0131; J0690; J1100; J1170; J1644; J1885; J2060; J2175; J2250; J2270; J2370; J2405; J3010; J3480; J7030; J7120

== ENCOUNTER 2018-02-19 06:27 | Inpatient (IN) ==
[2018-02-19] MEDS ORDERED: Metoprolol Tartrate 25 MG Tablet PO ONE (06:49)
[2018-02-19] MEDS ORDERED: Chlorhexidine Gluconate 2% 1 Pack (2 Cloths) TOPICAL ONE (06:49)
[2018-02-19] MEDS ORDERED: ceFAZolin 2 GM Premix Inj 2 GM/50 ML PIGGYBACK IV.SIG SCH (07:00)
[2018-02-19] MEDS ORDERED: Sodium Chlor 0.9% Inj 500 ML IV.SIG SCH (07:00)
[2018-02-19] MEDS ORDERED: Dextrose 5%/NaCl 0.9% Inj 1,000 ML IV.SIG SCH (07:00)
[2018-02-19] MEDS ORDERED: Sugammadex Inj 200 MG/2 ML Vial IV.PUSH ONE (08:17)
--- NOTE | 2018-02-19 09:57 | P.OP ---
- Preoperative Diagnosis (1) Colon cancer - Postoperative Diagnosis (1) Colon cancer Date of procedure: 02/19/18 Procedure: Cystoscopy and placement of bilateral ureteral catheters Anesthesia: GETA Surgeon: Alexandre Sanchez MD Estimated blood loss (mL): 0 Pathology: none sent Operation and Findings: Indication for procedures: Consulted intraoperatively to place bilateral ureteral catheters to aid in visualization of this patient's ureters during her colorectal procedure. Urologic procedures in detail: Concurrent with the colorectal surgeon Dr. Roth, I proceeded with placement of bilateral ureteral catheters as follows : Initially cystoscopic evaluation was performed utilizing the rigid cystoscope with the 22 Gu[place]ian sheath and the 30 degree lens. Both right and left ureteral orifices were in correct anatomic position draining clear yellow urine. There were no bladder mucosal lesions, calculi or diverticula formation. There were no areas suspicious for fistula formation. I then proceeded to place a sensor 0.035 wire up the patient's left ureter until a small amount of resistance was met. A 6 Guamanian open-ended ureteral catheter was then advanced over this wire 25 cm in a cephalad direction. With the catheter in place, the guidewire was withdrawn and reintroduced to a secondary site by the cystoscope. In similar fashion the contralateral side was accomplished. With both catheters in place the wire and cystoscope were withdrawn and a 16 Guamanian 10 cc Turner catheter was placed. Both ureteral catheters were anchored to the Turner via a connector and all 3 catheters placed to gravity drainage. This completes the urologic surgery portion of combined procedures on this patient.
[2018-02-19] MEDS ORDERED: HYDROmorphone PF Inj 1 MG/ML Ampul ONE (14:43)
[2018-02-19] MEDS ORDERED: Potassium Chlor 20 mEq Premix 20 MEQ/100 ML PIGGYBACK IV.SIG ONE (15:17)
[2018-02-19] MEDS ORDERED: Naloxone Inj 0.4 MG/ML Vial IV.PUSH PRN (15:25)
[2018-02-19] MEDS ORDERED: *Ondansetron Inj 4 MG/2 ML Vial PERIprocedural Use ONLY ONE (15:43)
[2018-02-19] MEDS ORDERED: *Meperidine Inj 25 MG/ML Vial PERIprocedural Use ONLY ONE (15:43)
[2018-02-19] MEDS ORDERED: fentaNYL Citrate Inj 100 MCG/2 ML Ampul ONE ×2 (15:47→15:48)
[2018-02-19] MEDS ORDERED: *Promethazine Inj 25 MG/ML Vial PERIprocedural use ONLY ONE (16:03)
[2018-02-19] MEDS: Dextrose 5%/NaCl 0.9% Inj 1,000 ML IV.CONT SCH (16:15)
[2018-02-19 16:16] LABS: Baso % (Auto) 0.3 % (0.0-2.0); Eos % (Auto) 0.1 % (0.0-4.0); Hematocrit 37.2 % (35.0-46.0); Hemoglobin 12.8 gm/dL (11.6-15.3); Lymph # (Auto) 0.6 th/mm3 (1.0-4.8); Lymph % (Auto) 4.9 % (9.0-44.0); Mean Corpuscular HGB Conc 34.5 % (32.0-36.0); Mean Corpuscular Hemoglobin 31.2 pg (27.0-34.0); Mean Corpuscular Volume 90.6 fL (80.0-100.0); Mean Platelet Volume 8.6 fL (7.0-11.0); Mono # (Auto) 0.5 th/mm3 (0.0-0.9); Mono % (Auto) 4.5 % (0.0-8.0); Neut # (Auto) 10.4 th/mm3 (1.8-7.7); Neut % (Auto) 90.2 % (16.0-70.0); Platelet Count 229 th/mm3 (150-450); Red Blood Count 4.11 mil/mm3 (4.00-5.30); Red Cell Distribution Width 12.8 % (11.6-17.2); White Blood Count 11.5 th/mm3 (4.0-11.0)
[2018-02-19] MEDS: Morphine Inj 30 MG/30 ML PCA.VIAL PCA PRN (16:18)
--- NOTE | 2018-02-19 16:32 | MP ---
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 PROCEDURE PERFORMED: 1. Robotic/laparoscopic extensive lysis of adhesions. 2. Robotic low anterior resection. 3. Ventral hernia repair. 4. Takedown of the splenic flexure. SURGEON: Ayanna Roth MD CEMENT PATCHER: David. ANESTHESIA: General per ET tube. ESTIMATED BLOOD LOSS: 150 mL INDICATIONS: The patient is a 62-year-old female who approximately 7-8 months prior to this admission had a sigmoid resection for what was presumed to be a diverticular stricture, but turned out to be a metastatic squamous cell carcinoma. Recent CT scan revealed evidence of thickening in the sigmoid again and colonoscopy did reveal evidence of cancer 10 cm above her previous anastomosis. Biopsies were consistent with metastatic squamous cell carcinoma. The patient was brought to the operating room, placed in the supine position. After induction of general anesthesia, the patient was placed in Tolu stirrups and all bony prominences were carefully padded. Dr. Sanchez then came in and performed cystoscopy with placement of bilateral ureteral catheters. Please see his operative note for details. Site was then chosen for the camera being located just to the right and below the umbilicus. A 10/12 trocar was placed at this location under direct vision using the laparoscope. CO2 insufflation was then undertaken and a brief abdominal survey was performed. She was noted to have some adhesions of the omentum to the previous incision as well as a small ventral hernia at her previous incision. The #1 port, a 10/12 was then placed just inside the right anterior superior iliac spine and the assist port, which we used a #8 Da Ekta, understanding that we would have to take down the splenic flexure. It was then placed under the right costal margin equidistant for the #1 and the camera port. The patient was hydroplaned with head down and to the right and the small bowel was brought up and out of the pelvis. The tumor was clearly visualized just above the anastomosis but upon evaluation, it was also stuck down to the left iliac artery and the pelvic wall on the left. The remaining 2 ports were then placed as follows: The #3 port was placed just on the umbilical line in the left anterior axillary line and the #2 port was placed 2 fingerbreadths above the umbilical line in the left midclavicular line. The robot was then docked over the left hip and the tumor and sigmoid colon and previous anastomoses were then slowly and painstakingly dissected free from the posterior pelvis as well as the left iliac artery and the left pelvic sidewall. Eventually, we were able to free the tumor from the tumor bed protecting the left ureter as we went, however, indubitably there was small bits of tumor still present in the pelvis. Dissection then continued inferiorly down to the level of the distal rectum and below the peritoneal reflection. There were some additional areas of tumor and one of these broke open as we were operating so there was spillage of some stool. At this point, we had mobility up to the level of the pelvic brim. Dissection then continued superiorly and posteriorly, freeing the distal descending colon from its posterior attachments at about the level mid-level of the mid descending colon. She was noted to have additional tumor burden just adjacent to the bowel. This was carefully dissected away from the kidney. The robot was then undocked and redocked over the left shoulder. The omentum was pulled away from the transverse colon and dissection was continued in this plane into the lesser sac was entered. Dissection then continued up and around the splenic flexure. Beginning at the right transverse colon and working my way around until I had full mobility of the transverse colon, descending colon, and down into the rectum. At that point, the posterior attachments of the proximal descending colon were dissected free, freeing up finally the splenic flexure. The bowel was then brought down and I found that it came down to the rectal stump without difficulty and the robot was then undocked. A 12 cm incision was made at the site of her previous incision. Using electrocautery, dissection was carried down to the fascia of the abdominal wall. She was noted to have a small hernia at her previous incision, which was opened widely. The wound protector was then placed and the distal stapled portion of bowel was removed via a laparotomy bag to avoid contamination. The proximal end was stapled and the bowel was then grasped and pulled up and out through the incision. A site was chosen for proximal division of the bowel just proximal to the descending colon tumor. The mesentery at this level was serially divided and ligated using 0 Vicryl ties and a pursestring stapling device was placed across the bowel at this level. Additional pursestring stapling device, which was about this level and the distal bowel was occluded with a Elza clamp. The bowel was amputated and sent to the back table where it was later opened. The anvil from the 29 EEA stapler was placed into the cut end of the bowel and the previously placed pursestring suture was then secured. This was then reduced back into the peritoneal cavity. The posterior fascia was then closed in a running fashion and the anterior fascia was closed in a running fashion, closing the hernia. The wound was irrigated with warm normal saline. The skin was closed in a running subcuticular fashion using 3-0 Vicryl and Tegaderm was placed over the incision. CO2 insufflation was then resumed and the robot was re-docked. Smaller bleeding in the pelvis was controlled using electrocautery and powdered Surgicel was placed dusted through the pelvic cavity over the previous tumor bed to minimize bleeding. At that point, we brought a piece of mesh onto the field and placed into the peritoneal cavity with plans to do a pelvic exclusion but after evaluation of the mesh, I did not feel that it was appropriate for this procedure and so we removed the mesh. The robot was undocked and the laparoscope was then brought into the field, placed into the peritoneal cavity. The fascia at the 10/12 trocar sites at the umbilicus and the right lower quadrant was then closed using the Crosser device and 0 Vicryl suture. These sutures were placed and held, but not secured until the CO2 was desufflated and CO2 was desufflated to the extent possible. The fascial sutures were secured. The skin at the trocar sites was closed in an interrupted subcuticular fashion using 3-0 Vicryl. Steri-Strips and sterile dressing were then applied. The right ureteral stent was removed. All sponge, needle and instrument counts were correct. The patient was returned to the postanesthesia care unit in stable condition. MD SINDI Del Cid/ct , 03:30 PM , 03:45 PM
[2018-02-19 16:34] LABS: Calcium 7.6 mg/dL (8.5-10.1); Carbon Dioxide 24.2 meq/L (21.0-32.0); Potassium 3.5 meq/L (3.5-5.1)
[2018-02-19] MEDS ORDERED: Potassium Chlor 20 mEq Premix 20 MEQ/100 ML PIGGYBACK IV.SIG SCH (17:00)
[2018-02-19] MEDS ORDERED: Potassium Chlor 20 mEq Premix 20 MEQ/100 ML PIGGYBACK IV.SIG PRN (17:15)
[2018-02-19] MEDS: Heparin - SQ 10,000 UNITS/ML Vial SQ SCH (21:35)
[2018-02-19] MEDS: ceFAZolin 1 GM Premix Inj 1 GM/50 ML PIGGYBACK IV.SIG SCH (21:35)
[2018-02-19] MEDS: Famotidine PF Inj 20 MG/2 ML Vial IV.PUSH SCH (21:35)
[2018-02-20] MEDS: Dextrose 5%/NaCl 0.9% Inj 1,000 ML IV.CONT SCH ×4 (01:52→21:06)
[2018-02-20] MEDS: ceFAZolin 1 GM Premix Inj 1 GM/50 ML PIGGYBACK IV.SIG SCH ×3 (06:22→21:05)
[2018-02-20 09:28] LABS: Baso % (Auto) 0.4 % (0.0-2.0); Eos # (Auto) 0.1 th/mm3 (0.0-0.4); Eos % (Auto) 0.5 % (0.0-4.0); Hemoglobin 11.9 gm/dL (11.6-15.3); Lymph # (Auto) 0.8 th/mm3 (1.0-4.8); Lymph % (Auto) 6.7 % (9.0-44.0); Mean Corpuscular HGB Conc 34.2 % (32.0-36.0); Mean Corpuscular Hemoglobin 31.1 pg (27.0-34.0); Mean Platelet Volume 8.9 fL (7.0-11.0); Mono # (Auto) 0.9 th/mm3 (0.0-0.9); Mono % (Auto) 8.1 % (0.0-8.0); Neut # (Auto) 9.7 th/mm3 (1.8-7.7); Neut % (Auto) 84.3 % (16.0-70.0); Platelet Count 192 th/mm3 (150-450); Red Blood Count 3.84 mil/mm3 (4.00-5.30); Red Cell Distribution Width 12.8 % (11.6-17.2); White Blood Count 11.5 th/mm3 (4.0-11.0)
[2018-02-20] MEDS: Heparin - SQ 10,000 UNITS/ML Vial SQ SCH ×2 (09:28→21:06)
[2018-02-20] MEDS: Famotidine PF Inj 20 MG/2 ML Vial IV.PUSH SCH ×2 (09:28→21:05)
[2018-02-20 09:59] LABS: Calcium 8.2 mg/dL (8.5-10.1); Carbon Dioxide 26.1 meq/L (21.0-32.0); Potassium 3.7 meq/L (3.5-5.1)
--- NOTE | 2018-02-20 12:09 | P.PNCS ---
Subjective Colorectal Surgery Post Op Day #: 1 Interval history: s/p robotic TARA, LAR sore, no nausea Objective Result Diagrams: 02/20/18 07:25 02/20/18 07:25 Objective Remarks: Abdomen soft, nondistended, tender dressings c/d/i Assessment and Plan - Plan D/C Turner/catheter Decrease IVF Mobilize Advance Diet
[2018-02-20] MEDS ORDERED: Heparin - SQ 10,000 UNITS/ML Vial SQ SCH (15:00)
[2018-02-20] MEDS: Morphine Inj 30 MG/30 ML PCA.VIAL PCA PRN (18:41)
[2018-02-21] MEDS: Dextrose 5%/NaCl 0.9% Inj 1,000 ML IV.CONT SCH (06:30)
[2018-02-21] MEDS: ceFAZolin 1 GM Premix Inj 1 GM/50 ML PIGGYBACK IV.SIG SCH ×3 (06:32→22:18)
[2018-02-21] MEDS: Heparin - SQ 10,000 UNITS/ML Vial SQ SCH ×2 (08:04→20:26)
[2018-02-21] MEDS: Famotidine PF Inj 20 MG/2 ML Vial IV.PUSH SCH ×2 (08:05→20:25)
[2018-02-21 08:58] LABS: Baso % (Auto) 0.3 % (0.0-2.0); Eos # (Auto) 0.5 th/mm3 (0.0-0.4); Eos % (Auto) 6.1 % (0.0-4.0); Hematocrit 34.5 % (35.0-46.0); Hemoglobin 11.8 gm/dL (11.6-15.3); Lymph # (Auto) 0.9 th/mm3 (1.0-4.8); Mean Corpuscular HGB Conc 34.3 % (32.0-36.0); Mean Corpuscular Hemoglobin 31.3 pg (27.0-34.0); Mean Corpuscular Volume 91.2 fL (80.0-100.0); Mean Platelet Volume 8.9 fL (7.0-11.0); Mono # (Auto) 0.6 th/mm3 (0.0-0.9); Mono % (Auto) 6.8 % (0.0-8.0); Neut # (Auto) 6.7 th/mm3 (1.8-7.7); Neut % (Auto) 76.8 % (16.0-70.0); Platelet Count 183 th/mm3 (150-450); Red Blood Count 3.79 mil/mm3 (4.00-5.30); Red Cell Distribution Width 12.5 % (11.6-17.2); White Blood Count 8.8 th/mm3 (4.0-11.0)
[2018-02-21 09:16] LABS: Calcium 8.4 mg/dL (8.5-10.1); Carbon Dioxide 28.1 meq/L (21.0-32.0); Potassium 3.7 meq/L (3.5-5.1)
--- NOTE | 2018-02-21 12:20 | P.PNCS ---
Subjective Colorectal Surgery Post Op Day #: 2 Interval history: s/p LAR, TARA comfortable, some shoulder pain from gas Objective Result Diagrams: 02/21/18 07:27 02/21/18 07:27 Objective Remarks: Abdomen soft, nondistended, tender wounds clean Assessment and Plan - Plan D/C [employer], IVF Advance Diet
[2018-02-22] MEDS: ceFAZolin 1 GM Premix Inj 1 GM/50 ML PIGGYBACK IV.SIG SCH (05:58)
[2018-02-22] MEDS: Heparin - SQ 10,000 UNITS/ML Vial SQ SCH (09:41)
[2018-02-22] MEDS: Famotidine PF Inj 20 MG/2 ML Vial IV.PUSH SCH ×2 (09:41→09:49)
--- NOTE | 2018-02-22 13:31 | P.PNCS ---
Subjective Colorectal Surgery Post Op Day #: 3 Interval history: afebrile, VSS UO good mingo PO Objective Result Diagrams: 02/21/18 07:27 02/21/18 07:27 Objective Remarks: Abdomen soft, nondistended, tender wounds clean stent still in no BM Assessment and Plan - Plan Imp: stable, OOB PT slow adv diet tx to floor
== END 2018-02-22 12:50 | disposition home or self-care (01) ==
LOC: HSDC 06:27 → EDSTATUS 08:30 → HSDI 15:39 → HCIN 17:35
PROVIDERS: ADMIT Colon & Rectal Surgery; ATTEND Colon & Rectal Surgery